=== PATIENT | male | born 1995 | race Caucasian/White ===

== ENCOUNTER 2018-03-29 05:17 | Emergency (ER) | payer OTHER ==
[~2018-03-29] VITALS: Ht 188 cm; Wt 85.0 kg
[2018-03-29 05:20] VITALS: BP 128/86
== END 2018-03-29 06:06 | disposition home or self-care (01) ==
LOC: ED 06:00
DX: H65.01 Acute serous otitis media, right ear (principal); H69.91 Unspecified Eustachian tube disorder, right ear; J02.9 Acute pharyngitis, unspecified
CPT/HCPCS: 99283